=== PATIENT | male | born 1985 | race Caucasian/White ===

== ENCOUNTER 2016-07-02 15:20 | Inpatient (IN) | payer OTHER ==
[~2016-07-02] VITALS: Ht 170.1 cm; Wt 67.8 kg
[2016-07-02 15:37] VITALS: BP 128/70
[2016-07-02 16:12] LABS: BASO % 0.4 % (0.0-1.0); EOS # 0.4 10*3/uL (0.0-0.4); EOS % 3.8 % (1.0-4.0); HEMATOCRIT 40.5 % (42.0-52.0); HEMOGLOBIN 14.2 g/dl (14.0-18.0); LYMPH % 29.4 % (27.0-41.0); MEAN CELL VOLUME 80.7 fl (80.0-94.0); MEAN CORPUSCULAR HGB 28.3 pg (27.0-31.0); MEAN CORPUSCULAR HGB CONC 35.1 g/dl (33.0-37.0); MEAN PLATELET VOLUME 8.3 fl (9.6-12.3); MONO # 0.8 10*3/uL (0.1-1.0); MONO % 7.6 % (3.0-9.0); NEUT # 5.9 10*3/uL (2.3-7.9); NEUT % 58.5 % (47.0-73.0); PLATELET COUNT AUTOMATED 262 10*3/uL (130-400); RED BLOOD COUNT 5.02 10*6/uL (4.50-5.90); RED CELL DISTRI WIDTH 13.2 % (0-14.5); WHITE BLOOD COUNT 10.1 10*3/uL (4.8-10.8)
[2016-07-02 16:29] LABS: BILIRUBIN NEGATIVE (NEGATIVE); BLOOD NEGATIVE (NEGATIVE); CLARITY CLEAR (CLEAR); COLOR YELLOW (YELLOW); GLUCOSE NEGATIVE (NEGATIVE); KETONE NEGATIVE (NEGATIVE); LEUKO ESTERASE NEGATIVE (NEGATIVE); NITRITE NEGATIVE (NEGATIVE); PH 5.5 (5.0-9.0); PROTEIN NEGATIVE (NEGATIVE)
[2016-07-02 16:30] LABS: ALBUMIN 3.5 gm/dl (3.1-4.5); ALKALINE PHOSPHATASE 64 U/L (45-117); BILIRUBIN, TOTAL 0.4 mg/dl (0.2-1.0); BUN 10 mg/dl (7-24); CARBON DIOXIDE 24 mmol/L (21-32); CHLORIDE 104 mmol/L (98-107); EST GLOM FILT AFRICAN AMERICAN > 60 ml/min; GLUCOSE 95 mg/dL (65-99); POTASSIUM 3.8 mmol/L (3.5-5.1); SGOT/AST 34 IU/L (3-35); SGPT/ALT 68 U/L (12-78); SODIUM 139 mmol/L (136-145); TOTAL PROTEIN 7.5 gm/dL (6.4-8.2)
[2016-07-02 16:30] LABS: PROTHROMBIN TIME 10.7 SECONDS (9.0-12.4)
[2016-07-02 16:38] LABS: BACTERIA TRACE; EPITHELIAL CELLS 0-2; URINE REFLEX COMMENT NO (NO); WBC 0-2 wbc/hpf (0-5)
[2016-07-02 16:39] LABS: URINE AMPHETAMINES > 1000 (1000ng/ml); URINE BARBITURATES < 200 (200ng/ml); URINE COCAINE < 300 (300ng/ml)
[2016-07-02 16:55] VITALS: BP 122/72
[2016-07-02 17:13] VITALS: BP 119/62
[2016-07-02 17:15] VITALS: BP 119/62
[2016-07-02] MEDS ORDERED: SEROQUEL50 MG PO (17:24)
[2016-07-02 20:00] VITALS: BP 117/61
[2016-07-03] VITALS: BP 104/58
[2016-07-03 04:00] VITALS: BP 107/61
[2016-07-03 08:00] VITALS: BP 125/66
[2016-07-03 12:00] VITALS: BP 110/68
[2016-07-03 16:56] VITALS: BP 118/51
[2016-07-03 20:00] VITALS: BP 131/69
[2016-07-04] VITALS: BP 112/58
[2016-07-04 08:00] VITALS: BP 119/74
[2016-07-04 12:00] VITALS: BP 126/74
[2016-07-04 16:00] VITALS: BP 115/56
[2016-07-04 20:40] VITALS: BP 127/69
[2016-07-05] VITALS: BP 106/59
[2016-07-05 09:00] VITALS: BP 120/56
[2016-07-05] MEDS ORDERED: ATARAX,VISTARIL50 MG PO (11:44)
[2016-07-05] MEDS ORDERED: ZOFRAN 4 MG ED2 TAB PO (11:44)
[2016-07-05] MEDS ORDERED: CARBIDOPA/LEVOD1 TA1 PO (11:44)
== END 2016-07-05 12:36 | disposition home or self-care (01) | DRG 897 ==
LOC: ED 15:20 → 5E 15:49 → EDHOLD 15:49 → 5E 16:14
PROVIDERS: Hospitalist; Nurse Practitioner Family
DX: F11.23 Opioid dependence with withdrawal (principal); F31.9 Bipolar disorder, unspecified; F15.10 Other stimulant abuse, uncomplicated; F17.200 Nicotine dependence, unspecified, uncomplicated; R03.0 Elevated blood-pressure reading, without diagnosis of hypertension; F14.90 Cocaine use, unspecified, uncomplicated; Z86.19 Personal history of other infectious and parasitic diseases; Z79.899 Other long term (current) drug therapy